=== PATIENT | female | born 1990 | race Caucasian/White ===

== ENCOUNTER 2018-08-03 16:00 | Inpatient (IN) | payer OTHER ==
[2018-08-03 16:59] LABS: BASO % 0.4 % (0-2.0); EOS % 0.7 % (0-4.5); HEMATOCRIT 32.6 % (32.4-45.2); HEMOGLOBIN 11.6 GM/dL (10.7-15.3); LYMPH % 22.6 % (8-40); MCH 31.9 pg (25.7-33.7); MCHC 35.5 g/dl (32.0-36.0); MEAN CELL VOLUME 89.8 fl (80-96); MEAN PLT VOLUME 9.4 fl (7.5-11.1); MONO % 5.7 % (3.8-10.2); NEUT % 70.6 % (42.8-82.8); PLATELET COUNT 202 K/MM3 (134-434); RBC 3.63 M/mm3 (3.60-5.2); WHITE BLOOD COUNT 9.5 K/mm3 (4.0-10.0)
[2018-08-03] MEDS ORDERED: AMPICILLIN SODIUM 2 GM VIAL ONE (17:06)
[2018-08-03] MEDS ORDERED: AMPICILLIN - 2 GM in SODIUM CHLORIDE 100 ML IVPB ONE (17:07)
[2018-08-03 17:13] LABS: ANION GAP 7 MMOL/L (8-16); BLOOD UREA NITROGEN 6 mg/dL (7-18); CALCIUM 7.9 mg/dL (8.5-10.1); CHLORIDE 105 mmol/L (98-107); CO2 27 mmol/L (21-32); CREATININE 0.5 mg/dL (0.55-1.3); GLUCOSE,RANDOM 71 mg/dL (74-106); POTASSIUM 3.6 mmol/L (3.5-5.1); SODIUM 139 mmol/L (136-145)
[2018-08-03] MEDS ORDERED: ELECTROLYTE-148 SOLN 1,000 ML IV SCH ×2 (17:15)
[2018-08-03 17:20] LABS: INR 0.88 (0.83-1.09); PROTHROMBIN TIME (PATIENT) 10.4 SEC (9.7-13.0)
[2018-08-03 17:22] VITALS: BMI 27.9
[2018-08-03 17:23] LABS: ACTIVATED PTT 24.4 SECONDS (25.2-36.5)
[2018-08-03] MEDS ORDERED: PHENYLEPHRINE HCL 10 MG/1 ML SINGLE DOSE VIAL ONE (17:48)
[2018-08-03] MEDS ORDERED: morphine SULFATE/Preservative Free 0.5 MG/ML (1cc Syringe) ONE (17:48)
--- NOTE | 2018-08-03 17:48 | HP ---
Past Medical History - Admission Chief Complaint: broke my water History of Present Illness: 28 y/o female with h/o previous c section X 2 here today for NST/preop testing for scheduled c section and during NST had SROM for clear fluid. NST reactive. complicated by inconsistent care (pt had 4 visits in total) and hypothyroidism (pt on levothyroxine). No VB/Ctx. No other complaints/issues today. Unknown GBS. 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 THERAPY: No: Migraine, Seizure Cardiovascular: No: HTN Pulmonary: No: Asthma, COPD Reproductive: No: Fibroids, PID, Polycystic Ovary Syndrome ...: 3 ...Para: 2 ...Term: 2 ...: 0 ...Spon : 0 ...Induced : 0 ...Multiple Gestation: 0 ...EDC by Sono: 08/05/18 Infectious Disease: No: STD's Psych: No: Anxiety, Bipolar, Depression - Past Surgical History Past Surgical History: Yes: (X2) Hx Myomectomy: No Hx Transabdominal Cerclage: No - Smoking History Smoking history: Current every day smoker Have you smoked in the past 12 months: Yes Aproximately how many cigarettes per day: 4 - Alcohol/Substance Use Hx Alcohol Use: No - Social History ADL: Independent History of Recent Travel: No Home Medications - Allergies Allergies/Adverse Reactions: Allergies Allergy/AdvReac Type Severity Reaction Status Date / Time No Known Allergies Allergy Verified 08/03/18 16:17 - Home Medications Home Medications: Ambulatory Orders Levothyroxine [Synthroid -] mcg PO DAILY 08/03/18 Tablet 1 tab PO DAILY 08/03/18 Review of Systems - Review of Systems Constitutional: reports: No Symptoms Eyes: reports: No Symptoms HENT: reports: No Symptoms Neck: reports: No Symptoms Cardiovascular: reports: No Symptoms Respiratory: reports: No Symptoms Gastrointestinal: reports: No Symptoms Genitourinary: reports: Discharge (SROM/amniotic fluid) Breasts: reports: No Symptoms Reported Musculoskeletal: reports: No Symptoms Integumentary: reports: No Symptoms Neurological: reports: No Symptoms Endocrine: reports: No Symptoms Hematology/Lymphatic: reports: No Symptoms Psychiatric: reports: No Symptoms Physical Exam - Maternity Constitutional: Yes: Well Nourished, No Distress, Calm Eyes: Yes: Conjunctiva Clear, EOM Intact HENT: Yes: Atraumatic, Normocephalic Neck: Yes: Trachea Midline Cardiovascular: Yes: Regular Rate and Rhythm Lungs: Clear to auscultation - Abdominal Exam/OB Fundal Height: 39 Number of Fetuses: Single Presentation: Vertex Contractions: No Category: I Accelerations: Uniform Decelerations: None - Physical Exam Psychiatric: Yes: Alert, Oriented - Labs Lab Results: CBC, BMP 08/03/18 16:25 08/03/18 16:25 Hemorrhage Risk Assessment - Risk Factors Medium Risk Factors: Yes: Prior , uterine surgery,or multiple laparotomies, History of previous hemorrhage High Risk Factors: Yes: None Risk Score: 2 Risk Level: High Risk Problem List - Problems (1) Spontaneous rupture of amniotic membranes Code(s): KCB9082 - (2) 39 weeks gestation of Code(s): Z3A.39 - 39 WEEKS GESTATION OF Assessment/Plan 28 y/o with SIUP at 39.5 weeks, prior c section X 2 here with SROM NPO SCDs mukherjee plan for repeat c section nursery/anesthesia aware
[2018-08-03] MEDS ORDERED: IBUPROFEN 600 MG TABLET (FP) PO PRN (17:55)
[2018-08-03] MEDS ORDERED: oxyCODONE HCL 5 MG TABLET PO PRN (17:55)
[2018-08-03] MEDS ORDERED: MIDAZOLAM HCL 2 MG/2 ML SINGLE DOSE VIAL ONE ×2 (18:16→18:22)
[2018-08-03 18:34] LABS: METHADONE, UR NEGATIVE ng/ml (CUTOFF=300); OPIATES, URI NEGATIVE ng/ml (CUTOFF=300); PHENCYCLIDINE,URINE NEGATIVE ng/ml (CUTOFF=25); URINE AMPHETAMINES NEGATIVE ng/ml (CUTOFF=500); URINE BARBITURATES NEGATIVE ng/ml (CUTOFF=200); URINE BENZODIAZEPINES NEGATIVE ng/ml (CUTOFF=200)
[2018-08-03 18:41] LABS: COCAINE, UR POSITIVE ng/ml (CUTOFF=300)
[2018-08-03] MEDS ORDERED: ceFAZolin SODIUM 1 GM VIAL ONE (18:43)
[2018-08-03] MEDS ORDERED: OXYTOCIN 10 UNITS/ML VIAL ONE ×3 (18:43)
[2018-08-03] MEDS ORDERED: IBUPROFEN 800 MG/8 ML IJ IVPB ONE (19:35)
[2018-08-03] MEDS: IBUPROFEN 800 MG/8 ML IJ IVPB PRN (19:40)
[2018-08-03] MEDS ORDERED: OXYTOCIN 20 UNITS in 0.9% NS 20 UNIT/1,000 ML INFUS.BAG IV ONE (20:18)
[2018-08-03] MEDS: METHYLERGONOVINE MALEATE 0.2 MG/1 ML AMP IM PRN (21:10)
[2018-08-04] MEDS: IBUPROFEN 800 MG/8 ML IJ IVPB PRN (05:10)
[2018-08-04 07:38] LABS: BASO % 0.4 % (0-2.0); EOS % 0.8 % (0-4.5); HEMATOCRIT 29.2 % (32.4-45.2); HEMOGLOBIN 10.4 GM/dL (10.7-15.3); LYMPH % 22.4 % (8-40); MCH 31.4 pg (25.7-33.7); MCHC 35.7 g/dl (32.0-36.0); MEAN CELL VOLUME 87.9 fl (80-96); MEAN PLT VOLUME 9.2 fl (7.5-11.1); MONO % 4.2 % (3.8-10.2); NEUT % 72.2 % (42.8-82.8); PLATELET COUNT 184 K/MM3 (134-434); RBC 3.32 M/mm3 (3.60-5.2); RDW 13.5 % (11.6-15.6); WHITE BLOOD COUNT 10.3 K/mm3 (4.0-10.0)
[2018-08-04] MEDS: OXYTOCIN 20 UNITS in 0.9% NS 20 UNIT/1,000 ML INFUS.BAG IV SCH ×2 (09:02→18:00)
[2018-08-04] MEDS: oxyCODONE HCL 5 MG TABLET PO PRN (09:03)
[2018-08-04] MEDS: ACETAMINOPHEN 325 MG TABLET (FP) PO PRN ×3 (09:04→21:50)
--- NOTE | 2018-08-04 10:31 | OP ---
Operative Note - Note: Operative Date: 08/03/18 (dictation [id number]) Pre-Operative Diagnosis: SIUP at 39.5 weeks, history of c section X 2, SROM Operation: repeat LTCS Findings: normal b/l tubes and ovaries live male infant Post-Operative Diagnosis: Same as Pre-op Surgeon: Izzy Murray Supervisor Cytogenetic Laboratory: Elmer Gan Anesthesiologist/BRASS PLATER: Luis E Wilkinson Anesthesia: Spinal Specimens Removed: placenta Estimated Blood Loss (mls): 600 Operative Report Dictated: Yes
--- NOTE | 2018-08-04 11:41 | OP ---
DATE OF OPERATION: 08/03/2018 PREOPERATIVE DIAGNOSIS: Single intrauterine at 39.5 weeks gestation, spontaneous rupture of membranes, history of section x2. POSTOPERATIVE DIAGNOSIS: Single intrauterine at 39.5 weeks gestation, spontaneous rupture of membranes, history of section x2. PROCEDURE: Repeat low transverse section. SURGEON: Izzy Murray MD TRACE EVIDENCE TECHNICIAN: Elmer Gan PA-C ANESTHESIA: Spinal. ANESTHESIOLOGIST: Luis E Wilkinson MD ESTIMATED BLOOD LOSS: 600 mL. COMPLICATIONS: None. DISPOSITION: Stable to PACU recovery room. COUNTS: Sponge, needle, and instrument counts were reported to be correct. SPECIMENS: Placenta. BRIEF HISTORY AND PROCEDURE: Patient is a 28-year-old female with a history of 2 prior sections who arrived to labor and delivery for preoperative testing for a scheduled . During her preoperative testing, she had spontaneous rupture of membranes. At which point, it was decided she undergo a repeat C- section at that time. Consents for the procedure were signed. The patient was taken back to the operating room and given spinal anesthesia and placed in the dorsal supine position. A Goins catheter was placed, and she was prepped and draped in the usual sterile fashion, and a hard time-out was performed. A Pfannenstiel skin incision was created in the skin with a scalpel using the prior skin incision. The incision was carried to the underlying layer of rectus fascia sharply. The fascia was incised on either side of the midline, and the fascial incision was carried in the superior lateral direction sharply. The fascia was tented upwards and dissected off the underlying layer of rectus muscle sharply. The musculature was elevated and in the midline sharply, and the peritoneum was then entered bluntly, and a bladder blade was inserted. Dissection of the peritoneum was completed sharply to allow for adequate room for delivery. A transverse incision was created in the lower uterine segment, which was extended in the superior lateral direction bluntly. Infant was then delivered from the left occiput transverse position without difficulty. Bilateral shoulders delivered with ease, and the remainder of the delivered without difficulty. The cord was clamped twice and cut in between. The was taken over to the warmer to be assessed by Neonatology staff who was present for the delivery. The placenta was then manually extracted. The 3-vessel cord was noted. The uterus was exteriorized from the abdomen, inspected, and cleared of all amniotic membrane and debris with a dry lap sponge. The hysterotomy was then reapproximated in a double layer closure, first using 1 Vicryl suture in a running locked fashion, 2nd layer using 0 Biosyn in a running fashion. Excellent hemostasis was achieved. The posterior cul-de- sac was suctioned of all blood clot and fluid. The uterus was placed back in the abdomen. Bilateral gutters were inspected and cleared of all blood clot and debris with the sponge. Tubes and ovaries were noted to be normal. The hysterotomy was noted again to be hemostatic. The peritoneum was reapproximated using 2-0 chromic in a running fashion. The musculature was reapproximated in 2 interrupted sutures using 2-0 chromic, and the fascia was reapproximated using 1 Vicryl in a running fashion. The subcutaneous tissue was irrigated in a single running layer using 1 Vicryl, and the skin was reapproximated using 3-0 Vicryl in a subcuticular fashion. Steri-Strips were applied. The patient tolerated the procedure well and was recovering in stable condition after the procedure in the PACU. Sponge, needle and instrument counts were reported to be correct at the end of the case. IZZY MURRAY DO /[id number]
[2018-08-04] MEDS: IBUPROFEN 600 MG TABLET (FP) PO PRN ×2 (12:02→21:51)
[2018-08-04] MEDS: SIMETHICONE 80 MG TAB.CHEW (FP) PO PRN ×2 (12:03→21:53)
--- NOTE | 2018-08-04 12:05 | PN ---
Post Progress Note - Subjective Subjective: Pt seen/evaluated. Having abdominal pain/gas pain. Denies nausea/vomiting. + flatus. VB moderate overnight, decreasing. No distention or tympany on exam. + bowel sounds. Desires regular diet/has appetite. Type of Delivery: Repeat C/S Vital Signs: Vital Signs Temperature 98.6 F 08/04/18 06:00 Pulse Rate 77 08/04/18 06:00 Respiratory Rate 18 08/04/18 06:00 Blood Pressure 122/51 L 08/04/18 06:00 O2 Sat by Pulse Oximetry (%) 99 08/03/18 22:00 Uterus: Yes: Fundus Firm Incision: Yes: Dressing dry and intact Abdomen/GI: Yes: Abdomen soft, Tender, Passing flatus, Tolerating PO. No: Abdominal Distention Lochia: Yes: Rubra Lochia, amount: Small Extremities: Yes: Calves non-tender. No: Edema Perineum: Yes: Intact - Labs Labs: CBC WBC 10.3 K/mm3 (4.0-10.0) H 08/04/18 06:10 RBC 3.32 M/mm3 (3.60-5.2) L 08/04/18 06:10 Hgb 10.4 GM/dL (10.7-15.3) L 08/04/18 06:10 Hct 29.2 % (32.4-45.2) L 08/04/18 06:10 MCV 87.9 fl (80-96) 08/04/18 06:10 MCH 31.4 pg (25.7-33.7) 08/04/18 06:10 MCHC 35.7 g/dl (32.0-36.0) 08/04/18 06:10 RDW 13.5 % (11.6-15.6) 08/04/18 06:10 Plt Count 184 K/MM3 (134-434) 08/04/18 06:10 MPV 9.2 fl (7.5-11.1) 08/04/18 06:10 Absolute Neuts (auto) 7.4 K/mm3 (1.5-8.0) 08/04/18 06:10 Neutrophils % 72.2 % (42.8-82.8) 08/04/18 06:10 Lymphocytes % 22.4 % (8-40) 08/04/18 06:10 Monocytes % 4.2 % (3.8-10.2) 08/04/18 06:10 Eosinophils % 0.8 % (0-4.5) 08/04/18 06:10 Basophils % 0.4 % (0-2.0) 08/04/18 06:10 Nucleated RBC % 0 % (0-0) 08/04/18 06:10 Problem List - Problems (1) Spontaneous rupture of amniotic membranes Assessment/Plan: resolved, s/p c section Code(s): PWD4679 - (2) 39 weeks gestation of Assessment/Plan: resolved, s/p c section Code(s): Z3A.39 - 39 WEEKS GESTATION OF (3) delivery delivered Code(s): O82 - ENCOUNTER FOR DELIVERY WITHOUT INDICATION Assessment/Plan Pt with abdominal pain, likely due to post surgical pain and gas as abdomen soft +BS, don't suspect ileus/obstruction at this time, will monitor advance diet to regular as tolerated encourage ambulation PO pain meds routine care
[2018-08-04] MEDS ORDERED: BISACODYL 10 MG SUPP.RECT RC PRN (17:55)
[2018-08-04] MEDS: METHYLERGONOVINE MALEATE 0.2 MG/1 ML AMP IM PRN (23:34)
[2018-08-05] MEDS: ACETAMINOPHEN 325 MG TABLET (FP) PO PRN ×3 (01:58→17:30)
[2018-08-05] MEDS: IBUPROFEN 600 MG TABLET (FP) PO PRN ×4 (02:00→21:03)
[2018-08-05] MEDS: SIMETHICONE 80 MG TAB.CHEW (FP) PO PRN ×4 (02:01→21:04)
--- NOTE | 2018-08-05 06:46 | PN ---
Post Progress Note - Subjective Subjective: Pt seen/evaluated. Sleeping upon my arrival. States she still has gas pain but is improving. Has been OOB, tolerating diet, VB/lochia still moderate overnight. NO CP/SOB/F/C/SOLORZANO. Type of Delivery: Repeat C/S Vital Signs: Vital Signs Temperature 98.2 F 08/04/18 22:00 Pulse Rate 91 H 08/04/18 22:00 Respiratory Rate 18 08/04/18 22:00 Blood Pressure 103/76 08/04/18 22:00 O2 Sat by Pulse Oximetry (%) 99 08/03/18 22:00 Uterus: Yes: Fundus Firm Incision: Yes: Dressing dry and intact Abdomen/GI: Yes: Abdomen soft, Tender (post surgical tenderness), Passing flatus , Tolerating PO. No: Abdominal Distention Lochia: Yes: Rubra Lochia, amount: Moderate Extremities: Yes: Calves non-tender. No: Edema Perineum: Yes: Intact Activity: Ambulating - Labs Labs: CBC WBC 10.3 K/mm3 (4.0-10.0) H 08/04/18 06:10 RBC 3.32 M/mm3 (3.60-5.2) L 08/04/18 06:10 Hgb 10.4 GM/dL (10.7-15.3) L 08/04/18 06:10 Hct 29.2 % (32.4-45.2) L 08/04/18 06:10 MCV 87.9 fl (80-96) 08/04/18 06:10 MCH 31.4 pg (25.7-33.7) 08/04/18 06:10 MCHC 35.7 g/dl (32.0-36.0) 08/04/18 06:10 RDW 13.5 % (11.6-15.6) 08/04/18 06:10 Plt Count 184 K/MM3 (134-434) 08/04/18 06:10 MPV 9.2 fl (7.5-11.1) 08/04/18 06:10 Absolute Neuts (auto) 7.4 K/mm3 (1.5-8.0) 08/04/18 06:10 Neutrophils % 72.2 % (42.8-82.8) 08/04/18 06:10 Lymphocytes % 22.4 % (8-40) 08/04/18 06:10 Monocytes % 4.2 % (3.8-10.2) 08/04/18 06:10 Eosinophils % 0.8 % (0-4.5) 08/04/18 06:10 Basophils % 0.4 % (0-2.0) 08/04/18 06:10 Nucleated RBC % 0 % (0-0) 08/04/18 06:10 Problem List - Problems (1) Spontaneous rupture of amniotic membranes Code(s): LWB9786 - (2) 39 weeks gestation of Code(s): Z3A.39 - 39 WEEKS GESTATION OF (3) delivery delivered Code(s): O82 - ENCOUNTER FOR DELIVERY WITHOUT INDICATION Assessment/Plan POD#2 s/p repeat delivery regular diet encourage ambulation PO pain meds moderate lochia, continue to monitor, repeat CBC in a.m. routine care
[2018-08-05] MEDS: ENOXAPARIN NA (PORCINE) 40 MG/0.4 ML DISP.SYRIN SQ SCH (09:25)
[2018-08-05] MEDS: oxyCODONE HCL 5 MG TABLET PO PRN (21:04)
[2018-08-06] MEDS: IBUPROFEN 600 MG TABLET (FP) PO PRN ×4 (00:54→19:14)
[2018-08-06] MEDS: oxyCODONE HCL 5 MG TABLET PO PRN ×3 (00:54→14:44)
[2018-08-06] MEDS: SIMETHICONE 80 MG TAB.CHEW (FP) PO PRN ×3 (00:55→19:14)
[2018-08-06 08:03] LABS: BASO % 0.5 % (0-2.0); EOS % 1.7 % (0-4.5); HEMATOCRIT 29.4 % (32.4-45.2); HEMOGLOBIN 10.3 GM/dL (10.7-15.3); LYMPH % 29.4 % (8-40); MCH 31.4 pg (25.7-33.7); MCHC 34.9 g/dl (32.0-36.0); MEAN CELL VOLUME 89.9 fl (80-96); MEAN PLT VOLUME 9.2 fl (7.5-11.1); MONO % 5.2 % (3.8-10.2); NEUT % 63.2 % (42.8-82.8); PLATELET COUNT 210 K/MM3 (134-434); RBC 3.27 M/mm3 (3.60-5.2); RDW 13.9 % (11.6-15.6); WHITE BLOOD COUNT 10.3 K/mm3 (4.0-10.0)
[2018-08-06] MEDS ORDERED: FLU VACCINE QUAD 60 MCG/0.5 ML (MDV 18-19) IM ONE (10:00)
[2018-08-06] MEDS: ENOXAPARIN NA (PORCINE) 40 MG/0.4 ML DISP.SYRIN SQ SCH (10:31)
--- NOTE | 2018-08-06 11:24 | CON.PSY ---
Psychiatry Consult Chief Complaint: 28 year female seen for psych eval. Positive for Cocaine. History of ?? bipolar disorder at age 13. Reports she has not seen a psych since then. - Previous Psychiatric Treatment Outpatient: None, More than 6 mos ago Inpatient: None - Previous Substance Abuse Treatment Outpatient: None Inpatient: None - Reason for Previous Treatment Reason for Previous Treatment: Biploar Illness, Cocaine - Current Medications Current Medications: Active Medications Acetaminophen (Tylenol -) 650 mg PO Q4H PRN PRN Reason: PAIN LEVEL 1-5 Last Admin: 08/05/18 17:30 Dose: 650 mg Bisacodyl (Dulcolax Suppository -) 10 mg RC PRN PRN PRN Reason: CONSTIPATION Enoxaparin Sodium (Lovenox -) 40 mg SQ DAILY LOIS Last Admin: 08/06/18 10:31 Dose: 40 mg Ibuprofen (Motrin -) 600 mg PO Q4H PRN PRN Reason: PAIN LEVEL 1-5 Last Admin: 08/06/18 07:39 Dose: 600 mg Ibuprofen (Motrin -) 600 mg PO Q4H PRN PRN Reason: PAIN LEVEL 1 - 3 Ibuprofen (Caldolor Injection -) 800 mg IVPB Q8H PRN PRN Reason: PAIN LEVEL 6-10 Last Admin: 08/04/18 05:10 Dose: 800 mg Methylergonovine Maleate (Methergine Injection -) 0.2 mg IM Q4H PRN PRN Reason: Excessive Bleeding (L&D) Last Admin: 08/04/18 23:34 Dose: 0.2 mg Oxycodone HCl (Roxicodone -) 10 mg PO Q4H PRN PRN Reason: PAIN LEVEL 7 - 10 Last Admin: 08/06/18 07:39 Dose: 10 mg Oxycodone HCl (Roxicodone -) 5 mg PO Q4H PRN PRN Reason: PAIN LEVEL 4 - 6 Simethicone (Mylicon -) 80 mg PO Q4H PRN PRN Reason: GAS Last Admin: 08/06/18 00:55 Dose: 80 mg - Allergies Allergies: Allergies Allergy/AdvReac Type Severity Reaction Status Date / Time No Known Allergies Allergy Verified 08/03/18 16:17 - Current Living Status Usual Living Arrangement: With Significant Other - Current Mental Status Evaluation Appearance: Well Groomed Attitude: Cooperative - Affect Affect: Full Range Appropriateness: Appropriate to Content - Mood Mood: Euthymic - Speech/Language Expressive: Coherent - Psychomotor Activity Psychomotor Activity: Normal - Thought Process Thought Process: Intact - Thought Content Hallucinations: Absent Delusions: Absent - Self Perception Self Perception: No Impairment - Cognition Attention: Alert Orientation: Time Memory, Immediate Recall: Intact Memory, Short Term: 3/3 Memory, Remote with Promptin/3 - Concentration Serial Sevens Intact: Yes Simple Calculations Intact: Yes - Abstraction Proverb Interpretation: Intact Judgement: Minimally Impaired - Insight Insight: Intact - Impulse Control Impulse Control: Good Control - Suicidal Ideation Suicidal Ideation: No - Homicidal Ideation Homicidal Ideation: No Assessment/Plan 1) patient is not acutely psychotic or manic, 2) No Depression , no suicidal thoughts or Homicidal thoughts at this time. 3) can be discharged when medically stable. 4) No psych follow up needed.
[2018-08-06] MEDS: ACETAMINOPHEN 325 MG TABLET (FP) PO PRN (19:14)
[2018-08-07] MEDS: SIMETHICONE 80 MG TAB.CHEW (FP) PO PRN ×3 (00:14→17:05)
[2018-08-07] MEDS: IBUPROFEN 600 MG TABLET (FP) PO PRN ×3 (00:15→17:04)
[2018-08-07] MEDS: ACETAMINOPHEN 325 MG TABLET (FP) PO PRN ×3 (00:15→17:04)
--- NOTE | 2018-08-07 06:46 | DS ---
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: Vital Signs Temperature 98.1 F 08/06/18 22:00 Pulse Rate 79 08/06/18 22:00 Respiratory Rate 18 08/06/18 22:00 Blood Pressure 107/64 08/06/18 22:00 O2 Sat by Pulse Oximetry (%) 99 08/03/18 22:00 Constitutional: Yes: Well Nourished, No Distress Eyes: Yes: Conjunctiva Clear HENT: Yes: Atraumatic Neck: Yes: Supple Cardiovascular: Yes: Regular Rate and Rhythm Respiratory: Yes: Regular Gastrointestinal: Yes: Normal Bowel Sounds, Soft ....Post : Yes: Uterus firm, Uterus non-tender Wound/Incision: Yes: Clean/Dry, Well Approximated Psychiatric: Yes: Alert, Oriented, Other (seen by psych, cleared to go home) Labs: CBC, BMP 08/06/18 07:00 08/03/18 16:25 Delivery - Delivery Section: Repeat, Low Flap Transverse Type of Anesthesia: Spinal Episiotomy/Laceration: None EBL (cc): 600 Delivery, Single - Stages of Labor Date of Delivery: 08/03/18 Time of Delivery: 18:15 Time Placenta Delivered: 18:16 Placenta: Yes: Manual Removal - Condition of Director Of Front Office/Assurance Auditor Present: No Infant Gender: Male Weight: 6 lb Total Hours ROM (Hrs/Mins): 1 hours 31 minutes - 1 Minute Total Score: 9 5 Minutes Total Score: 9 - [place] Feeding Plan Initial Plan: Elected not to breastfeed exclusively throughout hospitalization Discharge Summary Reason For Visit: ADMIT Current Active Problems 39 weeks gestation of (Acute) delivery delivered (Acute) Spontaneous rupture of amniotic membranes (Acute) Procedures: Principal: Repeat delivery. Hospital Course: Pt admitted on 08/03 after SROM during NST and underwent repeat low transverse delivery. Pt had +tox screen for cocaine. Was seen and cleared by psych. CPS and social work involved in case. Pt had some pain on post op day 1 , but otherwise medically had uncomplicated post /post op course. She was discharged on post op day 4. Condition: Good - Instructions Diet, Activity, Other Instructions: Physical activity Resume your normal everyday activity as tolerated no heavy lifting or strenuous exercise until seen by your surgeon. You may walk unlimited amounts and climb stairs. You may resume driving the car when you feel safe and comfortable behind the wheel. No sexual activity as instructed. Wound care If there are tapes on the skin leave them in place. They will peel off in the next 7 to 10 days. Do Not Peel them off. You may shower the day after surgery. If there are tapes present on the skin, you may shower over them. Diet There are no dietary restrictions. Eat healthy, high-fiber foods. Drink 6 to 8 glasses of liquid each day. This will assist in keeping your bowels regular. Pain management You may take Tylenol or or Ibuprofen (for example, Motrin, Advil etc.) as needed. If you need anything stronger please call your doctor. Call MD for any of the following: Severe pain not relieved by medication Fever of 101 or higher Excessive bleeding or drainage on dressing Inability to urinate Disposition: HOME - Home Medications Comprehensive Discharge Medication List: Ambulatory Orders Levothyroxine [Synthroid -] mcg PO DAILY 08/03/18 Tablet 1 tab PO DAILY 08/03/18
[2018-08-07] MEDS: ENOXAPARIN NA (PORCINE) 40 MG/0.4 ML DISP.SYRIN SQ SCH (09:27)
[2018-08-07] MEDS ORDERED: DIPHTH,PERTUSS(ACELL),TET 0.5 ML DISP.SYRIN IM ONE (10:00)
[2018-08-07 14:24] VITALS: BP 123/72; PULSE 85; TEMP 98.6
--- NOTE | 2018-08-09 13:30 | PATH ---
Surgical Pathology Report Patient Name: LESLIE MALAGON [facility]. Rec. 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 Specimen(s) Received PLACENTA Clinical History , previous x2, history of blood transfusion Final Diagnosis PLACENTA, SECTION: 357 G THIRD TRIMESTER PLACENTA WITH TRIVASCULAR UMBILICAL CORD AND UNREMARKABLE PLACENTAL MEMBRANES. Electronically Signed Radha Leonardo M.D. Gross Description The specimen is received fresh labeled placenta and is a 357 gram, 15.0 x 13.5 x 3.0 cm. placenta with attached membranes and umbilical cord. The attached membranes are costa, translucent opacities and insert marginally. The umbilical cord measures 32 cm. in length and averages 1.1 cm. in diameter. The cord inserts eccentrically, 1 cm. to the nearest margin. No true knots or strictures are identified. Cut surface of the umbilical cord reveals 3 vessels. The surface is nolasco-blue with minimal fibrin deposition and appropriate caliber vessels. The maternal surface is red-brown with focal defects. Sectioning reveals red-brown, spongy parenchyma. No lesions are identified. Facsimile Machine Operator sections are submitted in three cassettes as follows: 1- membrane rolls and umbilical cord; 2-3- full thickness sections of placenta. 08/06/[address] [facility]08/06/2018
== END 2018-08-07 18:30 | disposition home or self-care (01) | DRG 540 ==
LOC: JDEL 16:00 → JLDR 16:48 → J3W 21:45
PROVIDERS: ADMIT Obstetrics & Gynecology; ATTEND Obstetrics & Gynecology
PROC: 10D00Z1 Extraction of Products of Conception, Low, Open Approach (ICD-10-PCS; principal; 2018-08-03)
DX: O34.219 Maternal care for unspecified type scar from previous cesarean delivery (principal); O99.324 Drug use complicating childbirth; F14.10 Cocaine abuse, uncomplicated; Z3A.39 39 weeks gestation of pregnancy; Z37.0 Single live birth
CPT/HCPCS: 36415; 71046-TC-FY; 80048; 80307; 85025; 85610; 85730; 86593; 86850; 86900; 86901; 88307-TC; 90688; 90715; G0008

== ENCOUNTER 2024-01-15 22:13 | Emergency (ER) | payer OTHER ==
[2024-01-15 22:32] VITALS: BP 134/100; PULSE 106; RESP 18; TEMP 98.2; BMI 23.6
[2024-01-15] MEDS ORDERED: ACETAMINOPHEN INJECTION 100 ML IVPB ONE (22:57)
[2024-01-15] MEDS ORDERED: MAG HYDROX/AL HYDROX/SIMETH 30 ML UNIT-DOSE CUP ONE (22:57)
[2024-01-15] MEDS ORDERED: FAMOTIDINE 20 MG/50 ML IVPB 20 MG/50 ML MG IVPB ONE (22:57)
[2024-01-15] MEDS ORDERED: ONDANSETRON 4 MG/2 ML VIAL ONE (22:57)
[2024-01-15] MEDS: ACETAMINOPHEN 1000 MG/100 ML BAG IVPB ONE (23:23)
[2024-01-15] MEDS: MAG HYDROX/AL HYDROX/SIMETH 30 ML UNIT-DOSE CUP PO ONE (23:23)
[2024-01-15] MEDS: ONDANSETRON 4 MG/2 ML VIAL IVPUSH ONE (23:23)
[2024-01-15] MEDS: SODIUM CHLORIDE 0.9% 500 ML INFUS.BAG IV ONE (23:23)
[2024-01-15 23:28] LABS: BASO % 0.7 % (0-2.0); EOS % 1.5 % (0-4.5); HEMATOCRIT 40.4 % (32.4-45.2); LYMPH % 37.2 % (8-40); MCH 31.4 pg (25.7-33.7); MCHC 34.5 g/dl (32.0-36.0); MEAN CELL VOLUME 91.1 fl (80-96); MONO % 5.9 % (3.8-10.2); NEUT % 54.7 % (42.8-82.8); PLATELET COUNT 226 10^3/uL (134-434); RBC 4.44 M/mm3 (3.60-5.2); RDW 16.2 % (11.6-15.6); WHITE BLOOD COUNT 6.5 K/mm3 (4.0-10.0)
[2024-01-15 23:46] LABS: CHLORIDE 100 mmol/L (98-107); SODIUM 139 mmol/L (136-145)
[2024-01-15 23:48] LABS: ALBUMIN 4.1 g/dl (3.4-5.0); CALCIUM 9.5 mg/dL (8.5-10.1); CO2 26 mmol/L (21-32)
[2024-01-15 23:49] LABS: BLOOD UREA NITROGEN 6.5 mg/dL (7-18); GLUCOSE,RANDOM 83 mg/dL (74-106); MAGNESIUM 2.2 mg/dL (1.8-2.4)
[2024-01-15 23:51] LABS: CREATININE 0.5 mg/dL (0.55-1.3); SGOT/AST 337 U/L (15-37); SGPT/ALT 170 U/L (13-61)
[2024-01-15 23:53] LABS: BILIRUBIN,TOTAL 0.6 mg/dL (0.2-1); TOT PROT 8.5 g/dl (6.4-8.2)
[2024-01-15 23:54] LABS: ALK PHOS 152 U/L (45-117)
[2024-01-15 23:59] LABS: ANION GAP 12 mmol/L (4-13); POTASSIUM 2.8 mmol/L (3.5-5.1)
[2024-01-16] MEDS: FAMOTIDINE 20 MG/50 ML IVPB 20 MG/50 ML MG IVPB ONE (00:13)
[2024-01-16 01:45] LABS: EPI CELLS 36 /uL (0-25.1); HYALINE CASTS 6 /uL (0-3.1); URINE APPEARANCE CLEAR; URINE BACTERIA 265 /uL (0-1359); URINE BILIRUBIN NEGATIVE (NEGATIVE); URINE COLOR DK YELLOW; URINE GLUCOSE (UA) NEGATIVE (NEGATIVE); URINE KETONE 1+ (NEGATIVE); URINE LEUK ESTERASE NEGATIVE (NEGATIVE); URINE NITRITE NEGATIVE (NEGATIVE); URINE PROTEIN 1+ (NEGATIVE); URINE RBC 41 /uL (0-23.9); URINE WBC 22 /uL (0-25.8)
[2024-01-16] MEDS ORDERED: POTASSIUM CHLORIDE ORAL LIQUID 20 MEQ/15 ML ONE (02:05)
[2024-01-16] MEDS: POTASSIUM CHLORIDE ORAL LIQUID 20 MEQ/15 ML PO ONE (02:14)
[2024-01-16] MEDS ORDERED: FAMOTIDINE 20 MG/50 ML IVPB 20 MG/50 ML MG IVPB ONE ×2 (22:54→23:25)
== END 2024-01-16 02:40 | disposition home or self-care (01) ==
LOC: JER 22:13
PROC: 3E033GC Introduction of Other Therapeutic Substance into Peripheral Vein, Percutaneous Approach (ICD-10-PCS; 2024-01-15)
PROC: 3E033NZ Introduction of Analgesics, Hypnotics, Sedatives into Peripheral Vein, Percutaneous Approach (ICD-10-PCS; 2024-01-15)
PROC: 3E033GC Introduction of Other Therapeutic Substance into Peripheral Vein, Percutaneous Approach (ICD-10-PCS; principal; 2024-01-16)
DX: R10.11 Right upper quadrant pain (principal); R74.01 Elevation of levels of liver transaminase levels; R11.2 Nausea with vomiting, unspecified
CPT/HCPCS: 36415; 76705-TC; 80053; 81003; 83690; 83735; 84443; 84484; 84703; 85025; 87086; 93005; 93010; 99285-25; J0131

== ENCOUNTER 2024-01-22 01:42 | Emergency (ER) | payer OTHER ==
[2024-01-22 01:50] VITALS: RESP 20; BMI 23.4
[2024-01-22] MEDS ORDERED: FAMOTIDINE 20 MG/50 ML IVPB 20 MG/50 ML MG IVPB ONE (03:54)
[2024-01-22] MEDS ORDERED: ACETAMINOPHEN INJECTION 100 ML IVPB ONE (03:54)
[2024-01-22] MEDS: ACETAMINOPHEN 1000 MG/100 ML BAG IVPB ONE (04:06)
[2024-01-22] MEDS: SODIUM CHLORIDE 0.9% 500 ML INFUS.BAG IV ONE (04:06)
[2024-01-22] MEDS: FAMOTIDINE 20 MG/50 ML IVPB 20 MG/50 ML MG IVPB ONE (04:07)
[2024-01-22 04:38] LABS: POTASSIUM 3.2 mmol/L (3.5-5.1)
[2024-01-22 04:41] LABS: ALBUMIN 3.6 g/dl (3.4-5.0); BASO % 1.2 % (0-2.0); EOS % 2.2 % (0-4.5); HEMATOCRIT 40.7 % (32.4-45.2); HEMOGLOBIN 13.8 GM/dL (10.7-15.3); LYMPH % 44.8 % (8-40); MCH 31.3 pg (25.7-33.7); MCHC 33.9 g/dl (32.0-36.0); MEAN CELL VOLUME 92.3 fl (80-96); MEAN PLT VOLUME 9.1 fl (7.5-11.1); MONO % 5.7 % (3.8-10.2); NEUT % 46.1 % (42.8-82.8); PLATELET COUNT 178 10^3/uL (134-434); RDW 16.1 % (11.6-15.6)
[2024-01-22 04:42] LABS: BLOOD UREA NITROGEN 5.3 mg/dL (7-18)
[2024-01-22 04:43] LABS: CREATININE 0.5 mg/dL (0.55-1.3)
[2024-01-22 04:46] LABS: BILIRUBIN,TOTAL 0.3 mg/dL (0.2-1); TOT PROT 7.5 g/dl (6.4-8.2)
[2024-01-22 08:11] VITALS: BP 126/89; PULSE 76; TEMP 98.2
== END 2024-01-22 08:55 | disposition home or self-care (01) ==
LOC: JER 01:42
PROC: 3E033GC Introduction of Other Therapeutic Substance into Peripheral Vein, Percutaneous Approach (ICD-10-PCS; principal; 2024-01-22)
PROC: 3E033NZ Introduction of Analgesics, Hypnotics, Sedatives into Peripheral Vein, Percutaneous Approach (ICD-10-PCS; 2024-01-22)
DX: R11.10 Vomiting, unspecified (principal); K59.00 Constipation, unspecified; R21 Rash and other nonspecific skin eruption
CPT/HCPCS: 36415; 70450-TC; 74177-TC; 80053; 82962; 83605; 83690; 83735; 84703; 85025; 99285-25; J0131